=== PATIENT | female | born 1960 | race Caucasian/White ===

== ENCOUNTER 2018-06-28 08:35 | Day surgery (SDC) | payer OTHER ==
[2018-06-27 15:10] VITALS: BMI 22.4
[~2018-06-28 08:35] MED LIST: Cyclopentolate 1% Opth Drop 2 ML BOT FS SCH; Fluorouracil 100 MG, Enoxaparin Sodium 25 MG, EPINEPHrine 0.3 MG in Ophthalmic Irrigati... FS SCH; Phenylephrine 2.5% Ophth Soln 5 ML BOT FS SCH
[2018-06-28] MEDS ORDERED: Cyclopentolate 1% Opth Drop 2 ML BOT ONE (09:08)
[2018-06-28] MEDS ORDERED: Phenylephrine 2.5% Ophth Soln 5 ML BOT ONE (09:08)
[2018-06-28] MEDS ORDERED: PROPOFOL 20 ML ONE (10:30)
[2018-06-28] MEDS ORDERED: Fentanyl 100 MCG/2 ML VIAL ONE (10:30)
[2018-06-28] MEDS ORDERED: Triamcinolone 40 MG/ML VIAL ONE (14:45)
[2018-06-28] MEDS ORDERED: CEFAZOLIN 1 GM VIAL ONE (14:45)
[2018-06-28] MEDS ORDERED: Maxitrol 0.1% Opth Oint 3.5 GM TUBE ONE (14:45)
[2018-06-28] MEDS ORDERED: Lidocaine 4% PF 5 ML AMP ONE (14:45)
[2018-06-28] MEDS ORDERED: Bupivacaine 0.75% 10 ML AMP ONE (14:45)
[2018-06-28] MEDS ORDERED: PROPOFOL 200 MG/20 ML VIAL ONE (14:45)
[2018-06-28] MEDS ORDERED: Lidocaine 1% PF 5 ML VIAL ONE ×2 (14:45)
--- NOTE | 2018-06-28 19:29 | OP ---
DATE OF PROCEDURE: 06/28/2018 PREOPERATIVE DIAGNOSIS: Rhegmatogenous retinal detachment, right eye. POSTOPERATIVE DIAGNOSIS: Rhegmatogenous retinal detachment, right eye. PROCEDURE: Pars plana vitrectomy and retinal detachment repair, right eye. ANESTHESIA: Local monitored anesthesia care. PROCEDURE IN DETAIL: The patient was identified in the preoperative holding area. Informed consent for planned surgical procedure on the right eye had been obtained. The patient was transported to the operative suite. Appropriate cardiopulmonary monitoring established. Local anesthesia was obtained using retrobulbar modified Van Lint lid block using 50:50 mixture of 4% lidocaine and 0.75% bupivacaine. The patient was prepped and draped in usual sterile manner for ophthalmic surgery on the right eye. Lid speculum was placed in the right eye. A 25-gauge trocar was placed through the conjunctiva and sclera superotemporally, inferotemporally, and supranasally. Infusion line was placed inferotemporally. Light pipe vitreous cutter inserted into the eye, and core vitrectomy was performed. Tears were found at the 1 o'clock, 2 o'clock, and 7 o'clock positions. Posterior drained retinotomy was created nasal to the nerve. Complete air-fluid exchange was performed and 10 minutes being allowed for fluid to drain posteriorly. 360 laser was placed using Endolaser delivery device. 15% sulfur hexafluoride gas was infused into the eye. Trocars were removed. Superior sclerotomy suture was closed. Retrobulbar Kenalog and subconjunctival Ancef were placed. Antibiotic ointment was placed. The eye was patched and shielded. The patient was taken to postop recovery unit in good condition, having suffered no immediate perioperative complications. The patient was advised to position left side down and follow up in the morning with Dr. Kuhn. Job ID: [id number]
== END 2018-06-28 12:35 | disposition home or self-care (01) ==
LOC: SDC 08:35
PROVIDERS: ATTEND Ophthalmology Retina Specialist
PROC: 08QE3ZZ Repair Right Retina, Percutaneous Approach (ICD-10-PCS; principal; 2018-06-28)
PROC: 08T43ZZ Resection of Right Vitreous, Percutaneous Approach (ICD-10-PCS; principal; 2018-06-28)
DX: H33.021 Retinal detachment with multiple breaks, right eye (principal); Z79.899 Other long term (current) drug therapy; Z88.1 Allergy status to other antibiotic agents
CPT/HCPCS: 67025; J0171; J0690; J1650; J2001; J2704; J3010; J3301; J3490; J9190